=== PATIENT | female | born 1960 | race Caucasian/White ===

== ENCOUNTER → 2017-06-01 | Outpatient (CLI) | payer BC | LOC: FIMAGING 15:11 | PROVIDERS: ATTEND Family Medicine | DX: Z12.31 Encounter for screening mammogram for malignant neoplasm of breast (principal) | CPT/HCPCS: G0202 ==

== ENCOUNTER → 2017-08-27 | Outpatient (CLI) | payer BC ==
[~2017-08-27] MED LIST: GADOBUTROL 10 ML VIAL IVP ONE
== END ==
LOC: FIMAGING 10:39
PROVIDERS: ATTEND Internal Medicine Interventional Cardiology
DX: G93.9 Disorder of brain, unspecified (principal); I47.1 Supraventricular tachycardia; I34.0 Nonrheumatic mitral (valve) insufficiency
CPT/HCPCS: A9585

== ENCOUNTER 2017-10-28 15:26 | Inpatient (IN) | payer BC ==
[2017-10-28] MEDS ORDERED: TEARS/DEXTRAN 70/HYPROMELLOSE 15 ML OPHT.BTL RTEYE PRN (16:39)
[2017-10-28] MEDS ORDERED: oxyCODONE IR 5 MG TAB PO PRN (16:39)
[2017-10-28] MEDS: DEXAMETHASONE 4 MG TAB PO SCH ×2 (17:59→21:03)
--- NOTE | 2017-10-28 18:28 | GHP ---
[f rep st] HISTORY AND PHYSICAL POST ADMISSION PHYSICIAN EVALUATION AND REHABILITATION TREATMENT PLAN DATE OF ADMISSION: 10/28/2017 DATE OF EVALUATION: 10/28/2017. TIME OF EVALUATION: 1635. REFERRING FACILITY: [facility]. REFERRING PHYSICIAN: Dr. Phillips IMPAIRMENT GROUP: 2.1. DATE OF ONSET: 10/22/2017. 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 ETIOLOGIC DIAGNOSIS: Nontraumatic brain dysfunction. DATE OF SURGERY: 10/22/2017. HISTORY OF PRESENT ILLNESS: This patient had progressive numbness of the right side of her face, and had evaluation with a CT scan which showed a brain mass on the right side consistent with a schwannoma. She was referred to the [facility], where she underwent a right translabyrinthine approach craniotomy and resection of a large acoustic neuroma. She had dissection of the right greater auricular nerve and harvest and cable graft with a transected right facial nerve, and she had a right abdominal fat graft. Postoperatively, she had hearing loss on the right, nausea and vertigo. She also had right facial nerve paralysis. She had a procedure in which a gold weight was placed in her right eyelid to facilitate closing of the eye, on 10/27. Postoperative nausea and vomiting resolved, but she continues to have ataxia on the right and balance impairment, though she has been able to ambulate. Lab studies in the hospital: She had a troponin leak with a peak of 0.49 and subsequent improvement. Basic metabolic panel on 10/23, revealed normal renal function and electrolytes. Postoperative brain MRI showed gross total resection of right cerebellopontine and vestibular schwannoma via translabyrinthine approach. She had edema in the right lateral chandni, middle cerebellar, peduncle and right cerebellar hemisphere, and the mass that had occupied the posterior fossa was noted to be decreased. PRECAUTIONS: She is a fall risk and she is an aspiration risk. ACTIVE COMORBIDITIES: She has a tier 2 comorbidity of dysphagia. She otherwise has no active tier 1, tier 2 or tier 3 comorbidities. PAST MEDICAL HISTORY: 1. Mitral valve regurgitation. 2. Cardiac dysrhythmia. PAST SURGICAL HISTORY: 1. Mitral valve repair. 2. Pacemaker placement. PRE-HOSPITAL MEDICATIONS: I do not have a list. ADMISSION MEDICATIONS: 1. Artificial Tears 2 drops right eye q.2 hours p.r.n. 2. Aspirin 81 mg p.o. daily to start 7 days after surgery. 3. Bacitracin ophthalmic to the right eye twice daily. 4. Bacitracin ointment to the right post auricular incision twice daily. 5. Dexamethasone taper. 6. Metoprolol 50 mg p.o. twice daily. 7. Multivitamin 1 p.o. q. Wednesday and . 8. Oxycodone 5 mg p.o. q.4 hours p.r.n. 9. Refresh p.m. ointment to the right eye at bedtime. 10. Valacyclovir 500 mg p.o. twice daily. ALLERGIES: Medication allergies listed to nitrofurantoin. She also has allergies to apple, hazelnut, peach, pear, shellfish and cherries. PSYCHOSOCIAL HISTORY: She is . She lives with her . She has been a homemaker. She is a nonsmoker. There are 16 steps to enter the home. FAMILY HISTORY: Noncontributory. There is no family history of blood clots. REVIEW OF SYSTEMS: She denies pain, cough, dyspnea, palpitations. She had nausea, but it has resolved. There is no constipation or diarrhea. She denies dysuria or urinary frequency. She denies joint swelling or joint pain. She is aware of balance impairment. She was able to ambulate greater than 200 feet with assistance. She has diplopia on right gaze. Otherwise, a 10-point review of systems is negative. PHYSICAL EXAM: VITAL SIGNS: Blood pressure is 122/77, heart rate is 76, respiratory rate is 16, oxygen saturation is 97% on room air, temperature is 37.1 degrees centigrade. GENERAL: This is a well-nourished, well-developed woman sitting up in a chair, dressed in street clothes. Cooperative and in no acute distress. HEENT: Extraocular movements were intact, but she appears to have excess lateral movement of the right eye on right gaze. Pupils are equal, round, and reactive to light. Mucous membranes are moist. Dentition is in good condition. She has a prominent right facial droop. NECK: Supple. HEART : There is a regular rate and rhythm with no murmurs, rubs, or gallops. LUNGS : Clear to auscultation bilaterally. ABDOMEN: Soft, nontender, nondistended with normoactive bowel sounds and no hepatosplenomegaly. EXTREMITIES: There is no cyanosis, clubbing, or edema. NEUROLOGIC: She is alert and oriented x3. She has a prominent left facial droop as well as reduced ability to close her right eye, consistent with a right facial nerve injury. Otherwise, cranial nerves 2-12 are grossly intact. There is no focal weakness. Sensation is intact to light touch. Deep tendon reflexes are 2+ bilaterally at the biceps, patellar, and Achilles tendons. She has loss of smooth movement and some past pointing on [id number] with the right upper extremity. CURRENT LEVEL OF FUNCTION: Per the pre-admission screen. Regarding diet, feeding, and swallowing, she was noted to have mild dysphagia, but was on a regular diet. reports that she was on a dysphagia 2 texture with thin liquids. For grooming, she had contact guard for safety. For bathing she had contact guard with use of a bath bench. She was able to do lower body dressing with minimal assist. For toileting she required grab bars and close contact guard for balance. Bladder and bowel were continent. Bed mobility required contact guard. Transfers required close contact guard due to decreased balance and risk for fall. Dynamic balance required minimal assist. Endurance was fair. She was able to ambulate 220 feet with contact guard using a front- wheeled walker. When she was fatigued, her gait pattern had decreased coordination. It was noted that she had episodes of orthostatic hypotension and dizziness during functional tasks, and she was considered a high fall risk. There are no significant changes on today's exam from the pre-admission screen. IMPRESSION: This is a 57-year-old woman who had resection of a right vestibular schwannoma on 10/22/2017. She has had a right cranial nerve 7 injury during the surgery, which has caused a right facial droop, mild dysphagia and inability to close her right eye. The issue with the right eye has been addressed with implantation of a gold weight. She has impaired balance and ataxia of the right upper extremity and possibly of the right lower extremity. She is otherwise medically stable and appropriate for inpatient rehabilitation where she will benefit from physical therapy and occupational therapy to optimize mobility and activities of daily living, and speech and language pathology regarding swallowing. Other medical issues include wound healing, recent troponin leak, and history of mitral valve repair and pacemaker placement; she does not have pain; she is to continue with dexamethasone taper to reduce intracranial swelling. Her goal is to complete a rehabilitation stay and then return home with her family. For a safe discharge, she will need to achieve independence with eating , grooming, and bed mobility. She will need to have modified independence for transfers and ambulation with the least restrictive device on level and unlevel surfaces. She will need to be able to climb and descend stairs. She will need to demonstrate independent use of compensatory strategies during functional tasks to minimize risk for falls and she will be on the least restrictive diet. She will have therapy with physical therapy, occupational therapy, and speech and language pathology for 60 minutes per day for each discipline on 5-7 days of the week. Her expected duration of stay is 5-7 days. It is anticipated that upon discharge she will continue to benefit from home health services including speech language pathology, occupational therapy, and physical therapy. PLAN: 1. Ataxia and balance abnormalities following labyrinthine approach resection of right vestibular schwannoma. She has come through surgery well, but needs physical and occupational therapy to optimize mobility and activities of daily living and also to address diplopia, for a safe discharge home at the independent to modified independent level. 2. 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 Assessment per speech and language pathology to optimize her swallowing. 3. Impaired closure of the right eye, status post implantation of gold weight. Continue bacitracin ophthalmic ointment as well as eye drops, and observe for any irritation. 4. History of mitral valve replacement and pacemaker placement. She has additional rate control with metoprolol which is to be continued. She shows no signs or symptoms of heart failure, though there was a troponin leak during her surgery. She will be monitored in terms of blood pressure, heart rate, and cardiopulmonary status. 5. Intracranial edema, status post surgery. Continue dexamethasone taper. 6. Infectious prophylaxis against herpes zoster. She has been discharged from the hospital with valacyclovir. She has been prescribed a 30-day supply with 60 tablets, so presumably this should be continued for a full 30 days or until followup with Neurosurgery. 7. DVT prophylaxis. She does not appear to be at markedly elevated risk, and though she requires assistance for balance, her mobility is good. She will have SCDs at night. She will not have pharmacologic anticoagulation. Continue aspirin, which presumably is also for risk for coronary artery. FOLLOWUP: Per hospital discharge information. She is to have a postoperative visit with neurosurgeon, Dr. Phillips, at [facility] in [place], [place], on November 15, and with cuff runner, Dr. Marquis, at [facility] on November 30, 2017. Her primary care provider is Dr. Suki Arce, and she is scheduled for followup with her on October2017. This followup may not be kept if she remains at inpatient rehabilitation on that date, but the likelihood is that she will be discharged before then. /[id number]/MODL MTDD
[2017-10-28] MEDS: BACITRACIN OPHTHALMIC OINTMENT RTEYE SCH (21:03)
[2017-10-28] MEDS: valACYclovir 500 MG TAB PO SCH (21:03)
[2017-10-28] MEDS: METOPROLOL TARTRATE 50 MG TAB PO SCH (21:03)
[2017-10-28] MEDS: PETROLAT,WHT/MIN OIL/SOD CHL 3.5 GM OPHT.OINT RTEYE SCH (21:04)
[2017-10-28] MEDS: BACITRACIN ZINC TP SCH (21:04)
[2017-10-28] MEDS ORDERED: DEXAMETHASONE 4 MG TAB PO SCH (22:00)
[2017-10-29] MEDS: DEXAMETHASONE 4 MG TAB PO SCH ×3 (06:11→21:13)
[2017-10-29] MEDS: METOPROLOL TARTRATE 50 MG TAB PO SCH ×2 (08:54→21:13)
[2017-10-29] MEDS: ASPIRIN EC 81 MG TAB PO SCH (08:54)
[2017-10-29] MEDS: valACYclovir 500 MG TAB PO SCH ×2 (08:55→21:13)
--- NOTE | 2017-10-29 09:20 | PDOREHIP ---
Admission [facility] - Admission - 3 Day Assessment Period Admission Date/Day 1: 10/28/17 Day 2: 10/29/17 Day 3: 10/30/17 - Active Diagnoses Comorbidities and Co-existing Conditions at Admission: 32764. None of the Above - Skin Conditions Unhealed Pressure Ulcer (1 or more/Stage 1 or >)-Admission: 0. No
--- NOTE | 2017-10-29 09:35 | SOAPPROG ---
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 * Physical and occupational therapy to optimize mobility and activities of daily living and also to address diplopia, for a safe discharge home at the independent to modified independent level. * Currently she is a significant fall risk. 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 Continue speech and language pathology to optimize her swallowing. She reports the surgeon told her to expect 6 - 12 months for the nerve graft to mature and function to return to left CN7. * Impaired closure of the right eye, status post implantation of gold weight. Continue bacitracin ophthalmic ointment as well as eye drops, and observe for any irritation. * History of mitral valve replacement and pacemaker placement. She has additional rate control with metoprolol which is to be continued. She shows no signs or symptoms of heart failure, though there was a troponin leak during her surgery. Continue aspirin. She will be monitored in terms of blood pressure, heart rate, and cardiopulmonary status. * Intracranial edema, status post surgery. Continue dexamethasone taper. * Infectious prophylaxis against herpes zoster. She has been discharged from the hospital with valacyclovir. She has been prescribed a 30-day supply with 60 tablets, so presumably this should be continued for a full 30 days or until followup with Neurosurgery. * DVT prophylaxis. She does not appear to be at markedly elevated risk, and though she requires assistance for balance, her mobility is good. She will have SCDs at night. She will not have pharmacologic anticoagulation. Continue aspirin, which presumably is also for risk for coronary artery. FOLLOWUP: Per hospital discharge information. She is to have a postoperative visit with neurosurgeon, Dr. Phillips, at [facility] in [place], [place], on November 15, and with health companion, Dr. Marquis, at [facility] on November 30, 2017. Her primary care provider is Dr. Suki Arce, and she is scheduled for followup with her on October2017. This followup may not be kept if she remains at inpatient rehabilitation on that date, but the likelihood is that she will be discharged before then. 10/29/17 11:00 Subjective: No complaints. Slept most of the night but says she woke at approximately 4:00 a.m. She is not in pain. She denies cough or dyspnea, fevers or chills. Objective: Vital Signs Temp Pulse Resp BP Pulse Ox 36.5 C 79 16 114/73 95 10/29/17 06:23 10/29/17 08:54 10/29/17 06:23 10/29/17 08:54 10/29/17 06:23 10/28/17 10/29/17 10/30/17 05:59 05:59 05:59 Intake Total 450 Balance 450 Physical Exam - Physical Exam General Appearance: WD/WN, alert, no apparent distress Respiratory: normal breath sounds, No crackles, No rhonchi, No wheezing Cardiac/Chest: regular rate, rhythm, No edema, No JVD Skin: normal color, warm/dry Neuro/Psych: alert, normal mood/affect, oriented x 3, abnormal curtain cutter II-XII ( Marked right facial droop) ICD10 Worksheet Patient Problems: Problems Problem Status Onset Balance problem due to labyrinthine dysfunction of right ear Acute S/P craniotomy Acute - ICD10 Problem Qualifiers (1) 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
[2017-10-29] MEDS: BACITRACIN ZINC TP SCH ×2 (11:35→21:12)
[2017-10-29] MEDS: BACITRACIN OPHTHALMIC OINTMENT RTEYE SCH ×2 (11:38→21:12)
[2017-10-29] MEDS ORDERED: PNEUMOCOCCAL 0.5ML VACCINE VIAL (PNEUMOVAX 23) IM ONE ×2 (16:02→18:30)
[2017-10-29] MEDS: PETROLAT,WHT/MIN OIL/SOD CHL 3.5 GM OPHT.OINT RTEYE SCH (21:00)
[2017-10-30] MEDS: DEXAMETHASONE 4 MG TAB PO SCH ×3 (06:06→21:26)
[2017-10-30] MEDS: METOPROLOL TARTRATE 50 MG TAB PO SCH ×2 (08:52→21:08)
[2017-10-30] MEDS: valACYclovir 500 MG TAB PO SCH ×2 (08:52→21:07)
[2017-10-30] MEDS: ASPIRIN EC 81 MG TAB PO SCH (08:52)
[2017-10-30] MEDS: BACITRACIN ZINC TP SCH ×2 (09:59→21:10)
[2017-10-30] MEDS: BACITRACIN OPHTHALMIC OINTMENT RTEYE SCH ×2 (10:00→21:09)
[2017-10-30] MEDS ORDERED: POLYETHYLENE GLYCOL 3350 17 GM PKT PO PRN (15:12)
--- NOTE | 2017-10-30 15:17 | SOAPPROG ---
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 * Physical and occupational therapy to optimize mobility and activities of daily living and also to address diplopia, for a safe discharge home at the independent to modified independent level. * Currently she is a significant fall risk. 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 Continue speech and language pathology to optimize her swallowing. She reports the surgeon told her to expect 6 - 12 months for the nerve graft to mature and function to return to left CN7. * Impaired closure of the right eye, status post implantation of gold weight. Continue bacitracin ophthalmic ointment as well as eye drops, and observe for any irritation. * History of mitral valve replacement and pacemaker placement. She has additional rate control with metoprolol which is to be continued. She shows no signs or symptoms of heart failure, though there was a troponin leak during her surgery. Continue aspirin. She will be monitored in terms of blood pressure, heart rate, and cardiopulmonary status. * Intracranial edema, status post surgery. Continue dexamethasone taper. * Infectious prophylaxis against herpes zoster. She has been discharged from the hospital with valacyclovir. She has been prescribed a 30-day supply with 60 tablets, so presumably this should be continued for a full 30 days or until followup with Neurosurgery. * DVT prophylaxis. She does not appear to be at markedly elevated risk, and though she requires assistance for balance, her mobility is good. She will have SCDs at night. She will not have pharmacologic anticoagulation. Continue aspirin, which presumably is also for risk for coronary artery. FOLLOWUP: Per hospital discharge information. She is to have a postoperative visit with neurosurgeon, Dr. Phillips, at [facility] in [place], [place], on November 15, and with woods rider, Dr. Marquis, at [facility] on November 30, 2017. Her primary care provider is Dr. Suki Arce, and she is scheduled for followup with her on , October. This followup may not be kept if she remains at inpatient rehabilitation on that date, but the likelihood is that she will be discharged before then. Plan: Con Dr Carlson's rehab treatment plan 10/30/17 15:14 Subjective: No new C/O's Mobility, balance improving No F/C/CP/SOB/N/V/D/C Objective: Vital Signs Temp Pulse Resp BP Pulse Ox 36.5 C 90 16 107/69 97 10/30/17 07:05 10/30/17 09:00 10/30/17 07:05 10/30/17 09:00 10/30/17 07:05 10/29/17 10/30/17 10/31/17 05:59 05:59 05:59 Intake Total 450 596 600 Balance 450 596 600 Physical Exam - Physical Exam General Appearance: alert EENT: EOM palsy Neck: supple Respiratory: lungs clear Cardiac/Chest: regular rate, rhythm Skin: normal color, warm/dry Extremities: No pedal edema, No calf tenderness Neuro/Psych: alert, normal mood/affect, oriented x 3, abnormal marketing representative II-XII, abnormal gait, EOM palsy, facial droop, motor weakness, sensory deficit, other ( No acute changes) ICD10 Worksheet Patient Problems: Problems Problem Status Onset Balance problem due to labyrinthine dysfunction of right ear Acute S/P craniotomy Acute
[2017-10-30] MEDS: PETROLAT,WHT/MIN OIL/SOD CHL 3.5 GM OPHT.OINT RTEYE SCH (20:21)
[2017-10-30] MEDS: ACETAMINOPHEN 325 MG TAB PO PRN (21:08)
[2017-10-30] MEDS: DOCUSATE SODIUM 100 MG CAP PO PRN (21:08)
[2017-10-31] MEDS: valACYclovir 500 MG TAB PO SCH ×2 (08:06→20:52)
[2017-10-31] MEDS: METOPROLOL TARTRATE 50 MG TAB PO SCH ×2 (08:06→20:52)
[2017-10-31] MEDS: ASPIRIN EC 81 MG TAB PO SCH (08:06)
[2017-10-31] MEDS: DEXAMETHASONE 4 MG TAB PO SCH ×2 (08:07→20:52)
[2017-10-31] MEDS: BACITRACIN ZINC TP SCH ×2 (08:13→21:04)
[2017-10-31] MEDS: BACITRACIN OPHTHALMIC OINTMENT RTEYE SCH ×2 (08:15→21:04)
--- NOTE | 2017-10-31 12:37 | SOAPPROG ---
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 * Physical and occupational therapy to optimize mobility and activities of daily living and also to address diplopia, for a safe discharge home at the independent to modified independent level. * Currently she is a significant fall risk. 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 Continue speech and language pathology to optimize her swallowing. She reports the surgeon told her to expect 6 - 12 months for the nerve graft to mature and function to return to left CN7. * Impaired closure of the right eye, status post implantation of gold weight. Continue bacitracin ophthalmic ointment as well as eye drops, and observe for any irritation. * History of mitral valve replacement and pacemaker placement. She has additional rate control with metoprolol which is to be continued. She shows no signs or symptoms of heart failure, though there was a troponin leak during her surgery. Continue aspirin. She will be monitored in terms of blood pressure, heart rate, and cardiopulmonary status. * Intracranial edema, status post surgery. Continue dexamethasone taper. * Infectious prophylaxis against herpes zoster. She has been discharged from the hospital with valacyclovir. She has been prescribed a 30-day supply with 60 tablets, so presumably this should be continued for a full 30 days or until followup with Neurosurgery. * DVT prophylaxis. She does not appear to be at markedly elevated risk, and though she requires assistance for balance, her mobility is good. She will have SCDs at night. She will not have pharmacologic anticoagulation. Continue aspirin, which presumably is also for risk for coronary artery. FOLLOWUP: Per hospital discharge information. She is to have a postoperative visit with neurosurgeon, Dr. Phillips, at [facility] in [place], [place], on November 15, and with sales agent business services, Dr. Marquis, at [facility] on November 30, 2017. Her primary care provider is Dr. Suki Arce, and she is scheduled for followup with her on , October. This followup may not be kept if she remains at inpatient rehabilitation on that date, but the likelihood is that she will be discharged before then. Plan: No new problems or C/O's, Cont Dr Carlson's rehab treatment plan 10/31/17 12:35 Subjective: No pain/F/C/CP/SOB/N/V/D/C Objective: Vital Signs Temp Pulse Resp BP Pulse Ox 36.4 C 79 16 104/70 96 10/31/17 08:00 10/31/17 08:00 10/31/17 08:00 10/31/17 08:00 10/31/17 08:00 10/30/17 10/31/17 11/01/17 05:59 05:59 05:59 Intake Total 596 1160 Output Total 200 400 Balance 596 960 -400 Physical Exam - Physical Exam General Appearance: alert, no apparent distress EENT: EOM palsy Respiratory: lungs clear Cardiac/Chest: regular rate, rhythm Skin: normal color, warm/dry Extremities: No pedal edema, No calf tenderness Neuro/Psych: alert, normal mood/affect, oriented x 3, EOM palsy, facial droop, motor weakness, other (no acute changes) ICD10 Worksheet Patient Problems: Problems Problem Status Onset Balance problem due to labyrinthine dysfunction of right ear Acute S/P craniotomy Acute
[2017-10-31] MEDS: PETROLAT,WHT/MIN OIL/SOD CHL 3.5 GM OPHT.OINT RTEYE SCH (21:05)
[2017-11-01] MEDS: ASPIRIN EC 81 MG TAB PO SCH (08:48)
[2017-11-01] MEDS: DEXAMETHASONE 4 MG TAB PO SCH ×2 (08:49→21:01)
[2017-11-01] MEDS: valACYclovir 500 MG TAB PO SCH ×2 (08:50→21:01)
[2017-11-01] MEDS: METOPROLOL TARTRATE 50 MG TAB PO SCH ×2 (08:51→21:01)
[2017-11-01] MEDS: DOCUSATE SODIUM 100 MG CAP PO PRN (08:51)
[2017-11-01] MEDS: MULTIVITAMINS 1 EACH TAB PO SCH (08:51)
[2017-11-01] MEDS: BACITRACIN OPHTHALMIC OINTMENT RTEYE SCH ×2 (11:05→21:02)
[2017-11-01] MEDS: BACITRACIN ZINC TP SCH ×2 (11:06→21:02)
--- NOTE | 2017-11-01 15:16 | SOAPPROG ---
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 * Initial functional independence measure 85 on 11/01/2017. Minimal assist for transfers using a front wheeled walker. Ambulated 100 ft contact guard assist to minimal assist. Dressing requires setup or supervision, bathing requires minimal assistance. * Continue physical and occupational therapy to optimize mobility and activities of daily living and also to address diplopia, for a safe discharge home at the independent to modified independent level. 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 * Dysphagia 2 diet texture with thin liquids per straw. She is unable to maintain labial seal sufficient to drink fluids other than with a straw. She has pocketing on the right but she is independent for clearing the pocketing. * Continue speech and language pathology to optimize her swallowing. She reports the surgeon told her to expect 6 - 12 months for the nerve graft to mature and function to return to left CN7. * Impaired closure of the right eye, status post implantation of gold weight. Continue bacitracin ophthalmic ointment as well as eye drops, and observe for any irritation. * History of mitral valve replacement and pacemaker placement. She has additional rate control with metoprolol which is to be continued. She shows no signs or symptoms of heart failure, though there was a troponin leak during her surgery. Continue to monitor blood pressure, heart rate, and cardiopulmonary status. * Intracranial edema, status post surgery. Continue dexamethasone taper. * Infectious prophylaxis against herpes zoster. She has been discharged from the hospital with valacyclovir. She has been prescribed a 30-day supply with 60 tablets, so presumably this should be continued for a full 30 days or until followup with Neurosurgery. * DVT prophylaxis. She does not appear to be at markedly elevated risk, and though she requires assistance for balance, her mobility is good. She will have SCDs at night. She will not have pharmacologic anticoagulation. Continue aspirin, which presumably is also for risk for coronary artery. FOLLOWUP: Per hospital discharge information. She is to have a postoperative visit with neurosurgeon, Dr. Phillips, at [facility] in [place], [place], on November 15, and with director of placement, Dr. Marquis, at [facility] on November 30, 2017. Her primary care provider is Dr. Suki Arce, and she is scheduled for followup with her on October2017. This followup may not be kept if she remains at inpatient rehabilitation on that date, but the likelihood is that she will be discharged before then. Follow up with fitting room maintenance mechanic Dr. Matthews after discharge. Attended staffing, 15 min. Discussed with case management, nursing, dietitian, pharmacy, PT, OT, MILKING MACHINE TECHNICIAN. Tentative discharge date set for 11/10/2017. Expect discharge home with family. 11/01/17 15:09 Subjective: No complaints. Sleeping better with the last 2 nights. Not in pain. Thinks her balance is improving. Still with double vision and OT taping over her glasses. Reports constipation. Objective: Vital Signs Temp Pulse Resp BP Pulse Ox 36.6 C 67 16 108/66 95 11/01/17 06:34 11/01/17 06:34 11/01/17 06:34 11/01/17 06:34 11/01/17 06:34 10/31/17 11/01/17 11/02/17 05:59 05:59 05:59 Intake Total 1160 400 580 Output Total 200 625 1 Balance 960 -225 579 - Time Spent With Patient Time Spent With Patient: Greater than 35 min floor time today, including more than 50% of time in coordination of care during staffing meeting, and counseling patient. Physical Exam - Physical Exam General Appearance: WD/WN, alert, no apparent distress Respiratory: normal breath sounds, No crackles, No rhonchi, No wheezing Cardiac/Chest: regular rate, rhythm, No edema, No JVD, No diastolic murmur, No systolic murmur Skin: normal color, warm/dry Neuro/Psych: alert, normal mood/affect, oriented x 3, abnormal air force senior officer II-XII ( Right facial droop) ICD10 Worksheet Patient Problems: Problems Problem Status Onset Balance problem due to labyrinthine dysfunction of right ear Acute S/P craniotomy Acute - ICD10 Problem Qualifiers (1) 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
[2017-11-01] MEDS: PETROLAT,WHT/MIN OIL/SOD CHL 3.5 GM OPHT.OINT RTEYE SCH (21:02)
[2017-11-02] MEDS: DEXAMETHASONE 4 MG TAB PO SCH ×2 (08:06→20:47)
[2017-11-02] MEDS: ASPIRIN EC 81 MG TAB PO SCH (08:06)
[2017-11-02] MEDS: POLYETHYLENE GLYCOL 3350 17 GM PKT PO SCH (08:06)
[2017-11-02] MEDS: METOPROLOL TARTRATE 50 MG TAB PO SCH ×2 (08:06→20:50)
[2017-11-02] MEDS: valACYclovir 500 MG TAB PO SCH (08:07)
[2017-11-02] MEDS: MULTIVITAMINS 1 EACH TAB PO SCH (08:07)
[2017-11-02] MEDS: BACITRACIN OPHTHALMIC OINTMENT RTEYE SCH ×2 (10:19→22:14)
[2017-11-02] MEDS: BACITRACIN ZINC TP SCH (10:20)
--- NOTE | 2017-11-02 15:28 | SOAPPROG ---
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 * Initial functional independence measure 85 on 11/01/2017. Minimal assist for transfers using a front wheeled walker. Ambulated 100 ft contact guard assist to minimal assist. Dressing requires setup or supervision, bathing requires minimal assistance. * Continue physical and occupational therapy to optimize mobility and activities of daily living and also to address diplopia, for a safe discharge home at the independent to modified independent level. 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 * Dysphagia 2 diet texture with thin liquids per straw. She is unable to maintain labial seal sufficient to drink fluids other than with a straw. She has pocketing on the right but she is independent for clearing the pocketing. * Continue speech and language pathology to optimize her swallowing. She reports the surgeon told her to expect 6 - 12 months for the nerve graft to mature and function to return to left CN7. * Impaired closure of the right eye, status post implantation of gold weight. Continue bacitracin ophthalmic ointment as well as eye drops, and observe for any irritation. * Wound care. Continue bacitracin to postauricular wound. Left message 2017 with [facility] neurosurgery Department regarding duration of bacitracin and whether sutures can be removed while she is on the inpatient rehabilitation unit. * History of mitral valve replacement and pacemaker placement. She has additional rate control with metoprolol which is to be continued. She shows no signs or symptoms of heart failure, though there was a troponin leak during her surgery. Continue to monitor blood pressure, heart rate, and cardiopulmonary status. * Intracranial edema, status post surgery. Continue dexamethasone taper. * Infectious prophylaxis against herpes zoster. She has been discharged from the hospital with valacyclovir. She has been prescribed a 30-day supply with 60 tablets, so presumably this should be continued for a full 30 days or until followup with Neurosurgery. * DVT prophylaxis. She does not appear to be at markedly elevated risk, and though she requires assistance for balance, her mobility is good. She will have SCDs at night. She will not have pharmacologic anticoagulation. Continue aspirin, which presumably is also for risk for coronary artery. FOLLOWUP: Per hospital discharge information. She is to have a postoperative visit with neurosurgeon, Dr. Phillips, at [facility] in [place], [place], on November 15, and with right of way appraiser, Dr. Marquis, at [facility] on November 30, 2017. Her primary care provider is Dr. Suki Arce, and she is scheduled for followup with her on October2017. This followup may not be kept if she remains at inpatient rehabilitation on that date, but the likelihood is that she will be discharged before then. Follow up with windows and doors installer Dr. Matthews after discharge. Tentative discharge date set for 11/10/2017. Expect discharge home with family. 11/02/17 15:25 Subjective: No complaints today. Working with therapy. Sleeping well. Not in pain. Objective: Vital Signs Temp Pulse Resp BP Pulse Ox 36.6 C 92 16 104/62 97 11/02/17 06:50 11/02/17 08:06 11/02/17 06:50 11/02/17 06:50 11/02/17 06:50 11/01/17 11/02/17 11/03/17 05:59 05:59 05:59 Intake Total 400 1505 Output Total 625 1 500 Balance -225 1504 -500 Physical Exam - Physical Exam General Appearance: WD/WN, alert, no apparent distress Respiratory: No respiratory distress, No accessory muscle use Skin: normal color, warm/dry, other (Right post auricular incision with sutures present, no dehiscence, no drainage, no erythema or swelling) Neuro/Psych: alert, normal mood/affect, oriented x 3, abnormal industrial refrigeration mechanic II-XII ( Right facial droop) ICD10 Worksheet Patient Problems: Problems Problem Status Onset Balance problem due to labyrinthine dysfunction of right ear Acute S/P craniotomy Acute - ICD10 Problem Qualifiers (1) 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
[2017-11-02] MEDS: PETROLAT,WHT/MIN OIL/SOD CHL 3.5 GM OPHT.OINT RTEYE SCH (22:14)
[2017-11-03] MEDS: POLYETHYLENE GLYCOL 3350 17 GM PKT PO SCH (08:06)
[2017-11-03] MEDS: ASPIRIN EC 81 MG TAB PO SCH (08:09)
[2017-11-03] MEDS: METOPROLOL TARTRATE 50 MG TAB PO SCH ×2 (08:09→20:20)
[2017-11-03] MEDS: DEXAMETHASONE 2 MG TAB PO SCH ×2 (08:09→20:20)
[2017-11-03] MEDS: MULTIVITAMINS 1 EACH TAB PO SCH (08:09)
[2017-11-03] MEDS: BACITRACIN OPHTHALMIC OINTMENT RTEYE SCH ×2 (09:41→20:23)
--- NOTE | 2017-11-03 12:16 | SOAPPROG ---
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 * Initial functional independence measure 85 on 11/01/2017. Minimal assist for transfers using a front wheeled walker. Ambulated 100 ft contact guard assist to minimal assist. Dressing requires setup or supervision, bathing requires minimal assistance. * Continue physical and occupational therapy to optimize mobility and activities of daily living and also to address diplopia, for a safe discharge home at the independent to modified independent level. 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 * Dysphagia 2 diet texture advanced to regular texture on 11/03/2017; continue with thin liquids per straw. She is unable to maintain labial seal sufficient to drink fluids other than with a straw. She has pocketing on the right but she is independent for clearing the pocketing. * Continue speech and language pathology to optimize her swallowing. She reports the surgeon told her to expect 6 - 12 months for the nerve graft to mature and function to return to left CN7. * Impaired closure of the right eye, status post implantation of gold weight. Continue bacitracin ophthalmic ointment as well as eye drops, and observe for any irritation. * Wound care. Discontinued sutures from post auricular wound yesterday, 2017. Healing well. No need for continued bacitracin. * History of mitral valve replacement and pacemaker placement. She has additional rate control with metoprolol which is to be continued. She shows no signs or symptoms of heart failure, though there was a troponin leak during her surgery. Continue to monitor blood pressure, heart rate, and cardiopulmonary status. * Intracranial edema, status post surgery. Continue dexamethasone taper. * Infectious prophylaxis against herpes zoster. Discussed with nurse surgery yesterday 11/02/2017. Valacyclovir was intended to be a total of a 7 day course. It was discontinued yesterday, 11/02/2017. * DVT prophylaxis. She does not appear to be at markedly elevated risk, and though she requires assistance for balance, her mobility is good. She will have SCDs at night. She will not have pharmacologic anticoagulation. Continue aspirin, which presumably is also for risk for coronary artery. FOLLOWUP: Per hospital discharge information. She is to have a postoperative visit with neurosurgeon, Dr. Phillips, at [facility] in [place], [place], on November 15, and with host, Dr. Marquis, at [facility] on November 30, 2017. Her primary care provider is Dr. Suki Arce. Follow up with provisioning specialist Dr. Matthews after discharge. Tentative discharge date set for 11/10/2017. Expect discharge home with family. 11/03/17 12:13 Subjective: No complaints. Slept well. Not in pain. No right eye irritation. Objective: Vital Signs Temp Pulse Resp BP Pulse Ox 36.7 C 73 14 101/63 96 11/03/17 06:43 11/03/17 06:43 11/03/17 06:43 11/03/17 06:43 11/03/17 06:43 11/02/17 11/03/17 11/04/17 05:59 05:59 05:59 Intake Total 1505 420 500 Output Total 1 900 300 Balance 1504 -480 200 Physical Exam - Physical Exam General Appearance: WD/WN, alert, no apparent distress Respiratory: No respiratory distress, No accessory muscle use Skin: normal color, warm/dry, other (Left Hand have been removed from right post auricular incision. Incision is clean dry and intact) Neuro/Psych: alert, normal mood/affect, oriented x 3, abnormal processing specialist II-XII ( Right facial droop), abnormal gait (Lists to right. Needs contact guard or more per PT to avoid falling while walking.) ICD10 Worksheet Patient Problems: Problems Problem Status Onset Balance problem due to labyrinthine dysfunction of right ear Acute S/P craniotomy Acute - ICD10 Problem Qualifiers (1) 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
[2017-11-03] MEDS: PETROLAT,WHT/MIN OIL/SOD CHL 3.5 GM OPHT.OINT RTEYE SCH (20:23)
[2017-11-03] MEDS: ACETAMINOPHEN 325 MG TAB PO PRN (20:30)
[2017-11-04] MEDS: POLYETHYLENE GLYCOL 3350 17 GM PKT PO SCH (08:39)
[2017-11-04] MEDS: ASPIRIN EC 81 MG TAB PO SCH (08:40)
[2017-11-04] MEDS: DEXAMETHASONE 2 MG TAB PO SCH ×2 (08:40→20:54)
[2017-11-04] MEDS: METOPROLOL TARTRATE 50 MG TAB PO SCH ×2 (08:42→20:55)
[2017-11-04] MEDS: BACITRACIN OPHTHALMIC OINTMENT RTEYE SCH ×2 (10:24→20:54)
--- NOTE | 2017-11-04 10:56 | SOAPPROG ---
SOAP Progress Note Assessment/Plan: 51-year-old woman status post craniotomy for schwannoma resection Today's update: Patient doing well in therapies, no new concerns. Continue rehab plan below. A total of 20 min was spent on the floor in the care of the patient, the majority of which was spent in counseling and coordination of care regarding patient follow-up. Her chest discomfort is most consistent with reflux/GERD, relieved with food. This occurs to her regularly and is predictably relieved with food. Continue to monitor, will add GI medication for comfort. 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 * Initial functional independence measure 85 on 11/01/2017. Minimal assist for transfers using a front wheeled walker. Ambulated 100 ft contact guard assist to minimal assist. Dressing requires setup or supervision, bathing requires minimal assistance. * Continue physical and occupational therapy to optimize mobility and activities of daily living and also to address diplopia, for a safe discharge home at the independent to modified independent level. 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 * Dysphagia 2 diet texture advanced to regular texture on 11/03/2017; continue with thin liquids per straw. She is unable to maintain labial seal sufficient to drink fluids other than with a straw. She has pocketing on the right but she is independent for clearing the pocketing. * Continue speech and language pathology to optimize her swallowing. She reports the surgeon told her to expect 6 - 12 months for the nerve graft to mature and function to return to left CN7. * Impaired closure of the right eye, status post implantation of gold weight. Continue bacitracin ophthalmic ointment as well as eye drops, and observe for any irritation. * Wound care. Discontinued sutures from post auricular wound, 11/02/2017. Healing well. No need for continued bacitracin. * History of mitral valve replacement and pacemaker placement. She has additional rate control with metoprolol which is to be continued. She shows no signs or symptoms of heart failure, though there was a troponin leak during her surgery. Continue to monitor blood pressure, heart rate, and cardiopulmonary status. * Intracranial edema, status post surgery. Continue dexamethasone taper. * Infectious prophylaxis against herpes zoster. Valacyclovir was intended to be a total of a 7 day course. It was discontinued 11/02/2017. * DVT prophylaxis. She does not appear to be at markedly elevated risk, and though she requires assistance for balance, her mobility is good. She will have SCDs at night. She will not have pharmacologic anticoagulation. Continue aspirin, which presumably is also for risk for coronary artery. FOLLOWUP: Per hospital discharge information. She is to have a postoperative visit with neurosurgeon, Dr. Phillips, at [facility] in [place], [place], on November 15, and with photolithographer, Dr. Marquis, at [facility] on November 30, 2017. Her primary care provider is Dr. Suki Arce. Follow up with shovel mechanic Dr. Matthews after discharge. Tentative discharge date set for 11/10/2017. Expect discharge home with family. 11/04/17 10:52 11/04/17 10:56 Subjective: Chief complaint: Neurological improvement No acute events overnight. Patient endorses things have been going well overall. She had some indigestion this morning that is similar to ingestion she has had in the past relieved with breakfast. No new shortness of breath or chest pain otherwise, no new numbness, tingling, or weakness. She says that her function varies day-to-day and was very good yesterday, slightly less this morning. She has no acute concerns. Endorses ongoing vision impairments on the right. Objective: Vital Signs Temp Pulse Resp BP Pulse Ox 36.5 C 71 14 98/64 L 96 11/04/17 07:53 11/04/17 07:53 11/04/17 07:53 11/04/17 07:53 11/04/17 07:53 11/03/17 11/04/17 11/05/17 05:59 05:59 05:59 Intake Total 420 1218 436 Output Total 900 500 900 Balance -480 718 464 Physical Exam - Physical Exam General Appearance: WD/WN, alert, no apparent distress EENT: other (Patch covering right eye, dysconjugate gaze), No scleral icterus (R ), No scleral icterus (L) Respiratory: No respiratory distress, No accessory muscle use Cardiac/Chest: normal peripheral pulses, regular rate, rhythm, No edema Skin: normal color, warm/dry, No cyanosis, No diaphoresis Extremities: non-tender, No pedal edema, No calf tenderness, No swelling Neuro/Psych: alert, normal mood/affect, other (Right-sided finger to nose is dysmetric, normal on the left. She has decreased speed of rapid alternating movements on the right compared to the left. Right-sided facial droop) ICD10 Worksheet Patient Problems: Problems Problem Status Onset Balance problem due to labyrinthine dysfunction of right ear Acute S/P craniotomy Acute
[2017-11-04] MEDS ORDERED: MAG HYDROX/AL HYDROX/SIMETH 30 ML UDCUP PO PRN (14:25)
[2017-11-04] MEDS: DOCUSATE SODIUM 100 MG CAP PO PRN (18:59)
[2017-11-04] MEDS: PETROLAT,WHT/MIN OIL/SOD CHL 3.5 GM OPHT.OINT RTEYE SCH (20:54)
[2017-11-05] MEDS: METOPROLOL TARTRATE 50 MG TAB PO SCH ×2 (09:29→20:09)
[2017-11-05] MEDS: ASPIRIN EC 81 MG TAB PO SCH (09:29)
[2017-11-05] MEDS: POLYETHYLENE GLYCOL 3350 17 GM PKT PO SCH (09:29)
[2017-11-05] MEDS: DEXAMETHASONE 2 MG TAB PO SCH ×2 (09:29→20:10)
[2017-11-05] MEDS: BACITRACIN OPHTHALMIC OINTMENT RTEYE SCH ×2 (09:40→20:15)
--- NOTE | 2017-11-05 13:46 | SOAPPROG ---
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 * Initial functional independence measure 85 on 11/01/2017. Minimal assist for transfers using a front wheeled walker. Ambulated 100 ft contact guard assist to minimal assist. Dressing requires setup or supervision, bathing requires minimal assistance. * Continue physical and occupational therapy to optimize mobility and activities of daily living and also to address diplopia, for a safe discharge home at the independent to modified independent level. 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 * Dysphagia 2 diet texture advanced to regular texture on 11/03/2017; continue with thin liquids per straw. She is unable to maintain labial seal sufficient to drink fluids other than with a straw. She has pocketing on the right but she is independent for clearing the pocketing. * Continue speech and language pathology to optimize her swallowing. She reports the surgeon told her to expect 6 - 12 months for the nerve graft to mature and function to return to left CN7. * Hypoxia and tachycardia, resolved. * Slightly elevated D-dimer. CBC with mild leukocytosis, CTA chest w/out pulmonary embolus of other abnormality. Hypoxia with stair-climbing and tachycardia likely related to deconditioning. * Impaired closure of the right eye, status post implantation of gold weight. Continue bacitracin ophthalmic ointment as well as eye drops, and observe for any irritation. * Wound care. Discontinued sutures from post-auricular wound 11/02/2017. Healing well. No need for continued bacitracin. * History of mitral valve replacement and pacemaker placement. She has additional rate control with metoprolol which is to be continued. She shows no signs or symptoms of heart failure, though there was a troponin leak during her surgery. Continue to monitor blood pressure, heart rate, and cardiopulmonary status. * Intracranial edema, status post surgery. Continue dexamethasone taper. * Infectious prophylaxis against herpes zoster. Discussed with Neurosurgery yesterday 11/02/2017. Valacyclovir was intended to be a total of a 7 day course. It was discontinued yesterday, 11/02/2017. * DVT prophylaxis. She does not appear to be at markedly elevated risk, and though she requires assistance for balance, her mobility is good. She will have SCDs at night. She will not have pharmacologic anticoagulation. Continue aspirin, which presumably is also for risk for coronary artery. FOLLOWUP: Per hospital discharge information. She is to have a postoperative visit with neurosurgeon, Dr. Phillips, at [facility] in [place], [place], on November 15, and with signals officer, Dr. Marquis, at [facility] on November 30, 2017. Her primary care provider is Dr. Suki Arce. Follow up with rn delivery Dr. Matthews after discharge. Tentative discharge date set for 11/10/2017. Expect discharge home with family. 11/05/17 20:23 Subjective: Had episode of shortness of breath an elevated heart rate this morning while climbing stairs with therapy. Subsequently has ambulated in the owen without symptoms. Noted some indigestion yesterday; denies chest pain or palpitations. No cough or dyspnea otherwise. No fevers or chills. Objective: Vital Signs Temp Pulse Resp BP Pulse Ox 36.7 C 86 15 100/71 96 11/05/17 08:00 11/05/17 09:29 11/05/17 08:00 11/05/17 09:29 11/05/17 08:00 11/04/17 11/05/17 11/06/17 05:59 05:59 05:59 Intake Total 1218 1176 180 Output Total 500 900 500 Balance 718 276 -320 Physical Exam - Physical Exam General Appearance: WD/WN, alert, no apparent distress Respiratory: normal breath sounds, No crackles, No rhonchi, No wheezing Cardiac/Chest: regular rate, rhythm, No edema, No diastolic murmur, No systolic murmur Skin: normal color, warm/dry Extremities: No calf tenderness Neuro/Psych: alert, normal mood/affect, oriented x 3, abnormal alarm mechanism adjuster II-XII ( Right facial droop), abnormal gait ICD10 Worksheet Patient Problems: Problems Problem Status Onset Balance problem due to labyrinthine dysfunction of right ear Acute S/P craniotomy Acute - ICD10 Problem Qualifiers (1) 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
[2017-11-05 15:14] LABS: PLATELET COUNT 279 10^3/uL (150-400)
[2017-11-05] MEDS ORDERED: IOPAMIDOL (ISOVUE 370) 100 ML BTL IV ONE (18:55)
[2017-11-05] MEDS: PETROLAT,WHT/MIN OIL/SOD CHL 3.5 GM OPHT.OINT RTEYE SCH (20:28)
[2017-11-06] MEDS: ASPIRIN EC 81 MG TAB PO SCH (09:31)
[2017-11-06] MEDS: METOPROLOL TARTRATE 50 MG TAB PO SCH ×2 (09:31→20:41)
[2017-11-06] MEDS: POLYETHYLENE GLYCOL 3350 17 GM PKT PO SCH (09:32)
[2017-11-06] MEDS: MULTIVITAMINS 1 EACH TAB PO SCH (09:32)
[2017-11-06] MEDS: BACITRACIN OPHTHALMIC OINTMENT RTEYE SCH ×2 (10:40→20:42)
[2017-11-06] MEDS: PETROLAT,WHT/MIN OIL/SOD CHL 3.5 GM OPHT.OINT RTEYE SCH (11:21)
[2017-11-06] MEDS ORDERED: METOPROLOL TARTRATE 25 MG TAB PO ONE (11:21)
--- NOTE | 2017-11-06 12:52 | HOSPPROG ---
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 - cont CABLE TECHNICIAN * Tachycardia. Acutely reoccurred this AM w/ PT (HR 110s) w/ symptomatic palpitations, new problem to this provider, further w/u indicated. D/w patient, she has hx of asymptomatic Atach and NSVT, for which she currently take metop tart 50 bid, and I suspect that she is either experiencing reoccurrence of this w/ activity vs. new atrial arrhythmia (Afib or Flutter), but the process has been self-limited thus far, precluding EKG - get interrogation of PPM by [employer], and this should elucidate the rhythm - increase metop tart to 75mg once etiology is clearer, to prevent reoccurrence during therapy, BP permitting (she has a PPM so her paced rate may kick in) - cont ASA as prescribed by Dr. Matthews - will d/w Cards production designer at [place] today/tomorrow, once interrogation report available - CTA w/o PE * Impaired closure of the right eye, status post implantation of gold weight. Continue bacitracin ophthalmic ointment as well as eye drops, and observe for any irritation. * Wound care. Discontinued sutures from post-auricular wound 11/02/2017. Healing well. No need for continued bacitracin. * History of mitral valve repair (no prosthesis) and pacemaker placement (for complete heart block). She has additional rate control with metoprolol (ATach) which is to be continued. She shows no signs or symptoms of heart failure, though there was a troponin leak during her surgery. Continue to monitor blood pressure, heart rate, and cardiopulmonary status. * Intracranial edema, status post surgery. Continue dexamethasone taper. * Infectious prophylaxis against herpes zoster. Discussed with Neurosurgery yesterday 11/02/2017. Valacyclovir was intended to be a total of a 7 day course. It was discontinued 11/02/2017. * Constipation. Initiated bowel regimen Diet. Regular PPx. SCDs Code. Full Dispo. Per hospital discharge information. She is to have a postoperative visit with neurosurgeon, Dr. Phillips, at [facility] in [place], [place], on November 15, and with application support technician, Dr. Marquis, at [facility] on November 30, 2017. Her primary care provider is Dr. Suki Arce. Follow up with weight calculator Dr. Matthews after discharge. Tentative discharge date set for 11/10/2017. Expect discharge home with family. Subjective: symptomatic palpitations during PT this AM, no BMs Objective: Vital Signs Temp Pulse Resp BP Pulse Ox 36.6 C 83 16 109/71 98 11/06/17 08:00 11/06/17 09:31 11/06/17 08:00 11/06/17 09:31 11/06/17 08:00 Laboratory Results 11/05/17 14:03 11/05/17 14:03 11/05/17 11/06/17 11/07/17 05:59 05:59 05:59 Intake Total 1176 390 120 Output Total 900 500 Balance 276 -110 120 - Physical Exam Constitutional: no apparent distress, appears nourished, not in pain, No uncomfortable Eyes: other (R lid palsy) Cardiovascular: regular rate and rhythym, no murmur, rub, or gallop, No edema Respiratory: no respiratory distress, no rales or rhonchi, clear to auscultation Gastrointestinal: normoactive bowel sounds, soft, non-tender abdomen, no palpable masses, No distension Neurologic: AAOx3, sensation intact bilaterally, facial droop (R side palsy) Psychiatric: interacting appropriately, not anxious, not encephalopathic, thought process linear ICD10 Worksheet Patient Problems: Problems Problem Status Onset Balance problem due to labyrinthine dysfunction of right ear Acute S/P craniotomy Acute
[2017-11-06] MEDS: SENNOSIDES/DOCUSATE SODIUM TAB PO SCH ×2 (14:47→20:40)
[2017-11-06] MEDS ORDERED: METOPROLOL TARTRATE 50 MG TAB PO SCH (21:00)
[2017-11-07] MEDS: METOPROLOL TARTRATE 50 MG TAB PO SCH ×2 (08:16→20:01)
[2017-11-07] MEDS: ASPIRIN EC 81 MG TAB PO SCH (08:16)
[2017-11-07] MEDS: SENNOSIDES/DOCUSATE SODIUM TAB PO SCH ×2 (08:17→20:01)
[2017-11-07] MEDS: POLYETHYLENE GLYCOL 3350 17 GM PKT PO SCH (08:17)
[2017-11-07] MEDS: BACITRACIN OPHTHALMIC OINTMENT RTEYE SCH ×2 (08:46→20:02)
[2017-11-07 09:21] LABS: PLATELET COUNT 256 10^3/uL (150-400)
--- NOTE | 2017-11-07 12:40 | HOSPPROG ---
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 - cont METAL SASH SETTER * NSVT. Acutely occurring on 11/05 PM w/ a rate approx 150 and duration approx 6 secs (on PPM interrogation strip), has a hx of this - currently on bblocker, and was NOT the cause of her tachycardia (likely sinus tach) on 11/06 and 11/07 w/ PT, which is likely 2/2 exertion and deconditioning, and does not require further bblocker uptitration - will review the interrogation rhythm w/ Cards today and see if further recs - recommend she f/u w/ Dr. Matthews after discharge, no med adjustments * Impaired closure of the right eye, status post implantation of gold weight. Continue bacitracin ophthalmic ointment as well as eye drops, and observe for any irritation. * Wound care. Discontinued sutures from post-auricular wound 11/02/2017. Healing well. No need for continued bacitracin. * History of mitral valve repair (no prosthesis) and pacemaker placement (for complete heart block). She has additional rate control with metoprolol (hx of ATach) which is to be continued. She shows no signs or symptoms of heart failure, though there was a troponin leak during her surgery. Continue to monitor blood pressure, heart rate, and cardiopulmonary status. * Intracranial edema, status post surgery. Continue dexamethasone taper. * Infectious prophylaxis against herpes zoster. Discussed with Neurosurgery yesterday 11/02/2017. Valacyclovir was intended to be a total of a 7 day course. It was discontinued 11/02/2017. * Constipation. Initiated bowel regimen, has had BMs Diet. Regular PPx. SCDs Code. Full Dispo. Per hospital discharge information. She is to have a postoperative visit with neurosurgeon, Dr. Phillips, at [facility] in [place], [place], on November 15, and with clinical biostatistician, Dr. Marquis, at [facility] on November 30, 2017. Her primary care provider is Dr. Suki Arce. Follow up with manager ui Dr. Matthews after discharge. Tentative discharge date set for 11/10/2017. Expect discharge home with family. Subjective: noted increase in HR to 104 on palpation today during PT, no chest symptoms, had BMs Objective: Vital Signs Temp Pulse Resp BP Pulse Ox 36.5 C 85 16 108/74 99 11/07/17 06:40 11/07/17 08:16 11/07/17 06:40 11/07/17 08:16 11/07/17 06:40 Laboratory Results 11/07/17 06:30 11/07/17 06:30 11/06/17 11/07/17 11/08/17 05:59 05:59 05:59 Intake Total 390 1074 268 Output Total 500 Balance -110 1074 268 - Physical Exam Constitutional: no apparent distress, appears nourished, not in pain, No uncomfortable Ears, Nose, Mouth, Throat: other (R eye lid lag) Cardiovascular: regular rate and rhythym, no murmur, rub, or gallop, No edema Respiratory: no respiratory distress, no rales or rhonchi, clear to auscultation Gastrointestinal: normoactive bowel sounds, soft, non-tender abdomen, no palpable masses, No distension Neurologic: AAOx3, sensation intact bilaterally, facial droop (R face palsy), No weakness Psychiatric: interacting appropriately, not anxious, not encephalopathic, thought process linear ICD10 Worksheet Patient Problems: Problems Problem Status Onset Balance problem due to labyrinthine dysfunction of right ear Acute S/P craniotomy Acute
[2017-11-07] MEDS: PETROLAT,WHT/MIN OIL/SOD CHL 3.5 GM OPHT.OINT RTEYE SCH (20:02)
[2017-11-08] MEDS: ASPIRIN EC 81 MG TAB PO SCH (08:27)
[2017-11-08] MEDS: POLYETHYLENE GLYCOL 3350 17 GM PKT PO SCH (08:27)
[2017-11-08] MEDS: METOPROLOL TARTRATE 50 MG TAB PO SCH ×2 (08:27→21:05)
[2017-11-08] MEDS: SENNOSIDES/DOCUSATE SODIUM TAB PO SCH ×2 (08:27→21:05)
[2017-11-08] MEDS: BACITRACIN OPHTHALMIC OINTMENT RTEYE SCH ×2 (09:14→21:06)
--- NOTE | 2017-11-08 13:24 | SOAPPROG ---
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 * Initial functional independence measure 87 on 11/01/2017, improved to 97 as of 11/08/2017. Independent in her room 8:00 a.m. To 10:00 p.m.. Has ambulated 120- 150 feet standby assist with a front wheeled walker. Occasionally needs contact guard assist for loss of balance to the right. Decreased proprioception on the right. Gait is more challenging outside. Has blackout taping of the right eye for ambulation and partial opaque taping otherwise. * Continue physical and occupational therapy to optimize mobility and activities of daily living and also to address diplopia, for a safe discharge home at the independent to modified independent level. 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 * Dysphagia 2 diet texture advanced to regular texture on 11/03/2017; continue with thin liquids per straw. She is unable to maintain labial seal sufficient to drink fluids other than with a straw. Pocketing on the right has resolved. * Continue speech and language pathology to optimize her swallowing. She reports the surgeon told her to expect 6 - 12 months for the nerve graft to mature and function to return to left CN7. * Hypoxia and tachycardia, resolved. * Slightly elevated D-dimer. CBC with mild leukocytosis, CTA chest w/out pulmonary embolus of other abnormality. Hypoxia with stair-climbing and tachycardia likely related to deconditioning. Weekend cross cover discussed with operations management trainee Dr. Matthews. Pacemaker shows intermittent episodes of SVT. Follow up with Cardiology after discharge. * Impaired closure of the right eye, status post implantation of gold weight. Continue bacitracin ophthalmic ointment as well as eye drops, and observe for any irritation. * Wound care. Discontinued sutures from post-auricular wound 11/02/2017. Healing well. No need for continued bacitracin. * History of mitral valve replacement and pacemaker placement. She has additional rate control with metoprolol which is to be continued. She shows no signs or symptoms of heart failure, though there was a troponin leak during her surgery. Continue to monitor blood pressure, heart rate, and cardiopulmonary status. * Intracranial edema, status post surgery. Continue dexamethasone taper. * Infectious prophylaxis against herpes zoster. Discussed with Neurosurgery yesterday 11/02/2017. Valacyclovir was intended to be a total of a 7 day course. It was discontinued yesterday, 11/02/2017. * DVT prophylaxis. She does not appear to be at markedly elevated risk, and though she requires assistance for balance, her mobility is good. She will have SCDs at night. She will not have pharmacologic anticoagulation. Continue aspirin, which presumably is also for risk for coronary artery. FOLLOWUP: Per hospital discharge information. She is to have a postoperative visit with neurosurgeon, Dr. Phillips, at [facility] in [place], [place], on November 15, and with tub mender, Dr. Marquis, at [facility] on November 30, 2017. Her primary care provider is Dr. Suki Arce. Follow up with operations management trainee Dr. Matthews after discharge. Attended staffing, 15 min. Discussed with case management, dietitian, nursing, PT, OT, [employer]. Plan for discharge 11/10/2017. Expect discharge home with family. 11/08/17 13:20 Subjective: No complaints. She feels she is getting around better. Looking for to going home in 2 more days. Objective: Vital Signs Temp Pulse Resp BP Pulse Ox 36.6 C 87 16 113/70 96 11/08/17 07:51 11/08/17 07:51 11/08/17 07:51 11/08/17 07:51 11/08/17 07:51 Laboratory Results 11/07/17 06:30 11/07/17 06:30 11/07/17 11/08/17 11/09/17 05:59 05:59 05:59 Intake Total 1074 624 813 Balance 1074 624 813 - Time Spent With Patient Time Spent With Patient: Greater than 35 min floor time today, including more than 50% of time in coordination of care during staffing meeting, and counseling patient. Physical Exam - Physical Exam General Appearance: WD/WN, alert, no apparent distress Respiratory: normal breath sounds, No crackles, No rhonchi, No wheezing Cardiac/Chest: regular rate, rhythm, No edema Skin: normal color, warm/dry Neuro/Psych: alert, normal mood/affect, oriented x 3, abnormal nurse plastics II-XII ( Right facial droop) ICD10 Worksheet Patient Problems: Problems Problem Status Onset Balance problem due to labyrinthine dysfunction of right ear Acute S/P craniotomy Acute - ICD10 Problem Qualifiers (1) 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
[2017-11-08] MEDS: PETROLAT,WHT/MIN OIL/SOD CHL 3.5 GM OPHT.OINT RTEYE SCH (21:04)
[2017-11-09] MEDS: MULTIVITAMINS 1 EACH TAB PO SCH (08:04)
[2017-11-09] MEDS: SENNOSIDES/DOCUSATE SODIUM TAB PO SCH ×2 (08:04→20:10)
[2017-11-09] MEDS: ASPIRIN EC 81 MG TAB PO SCH (08:04)
[2017-11-09] MEDS: METOPROLOL TARTRATE 50 MG TAB PO SCH ×2 (08:05→20:10)
[2017-11-09] MEDS: BACITRACIN OPHTHALMIC OINTMENT RTEYE SCH ×2 (08:50→20:11)
[2017-11-09] MEDS: POLYETHYLENE GLYCOL 3350 17 GM PKT PO SCH (09:01)
--- NOTE | 2017-11-09 15:17 | SOAPPROG ---
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 * Initial functional independence measure 87 on 11/01/2017, improved to 97 as of 11/08/2017. Independent in her room 8:00 a.m. To 10:00 p.m.. Has ambulated 120- 150 feet standby assist with a front wheeled walker. Occasionally needs contact guard assist for loss of balance to the right. Decreased proprioception on the right. Gait is more challenging outside. Has blackout taping of the right eye for ambulation and partial opaque taping otherwise. * Continue physical and occupational therapy to optimize mobility and activities of daily living and also to address diplopia, for a safe discharge home at the independent to modified independent level. 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 * Dysphagia 2 diet texture advanced to regular texture on 11/03/2017; continue with thin liquids per straw. She is unable to maintain labial seal sufficient to drink fluids other than with a straw. Pocketing on the right has resolved. * Continue speech and language pathology to optimize her swallowing. She reports the surgeon told her to expect 6 - 12 months for the nerve graft to mature and function to return to left CN7. * Hypoxia and tachycardia, resolved. * Slightly elevated D-dimer. CBC with mild leukocytosis, CTA chest w/out pulmonary embolus of other abnormality. Hypoxia with stair-climbing and tachycardia likely related to deconditioning. Weekend cross cover discussed with acid washer operator Dr. Matthews. Pacemaker shows intermittent episodes of SVT. Follow up with Cardiology after discharge. * Impaired closure of the right eye, status post implantation of gold weight. Continue bacitracin ophthalmic ointment as well as eye drops, and observe for any irritation. * Wound care. Discontinued sutures from post-auricular wound 11/02/2017. Healing well. No need for continued bacitracin. * History of mitral valve replacement and pacemaker placement. She has additional rate control with metoprolol which is to be continued. She shows no signs or symptoms of heart failure, though there was a troponin leak during her surgery. Continue to monitor blood pressure, heart rate, and cardiopulmonary status. * Intracranial edema, status post surgery. Completed dexamethasone taper. * Infectious prophylaxis against herpes zoster. Discussed with Neurosurgery yesterday 11/02/2017. Valacyclovir was intended to be a total of a 7 day course. It was discontinued 11/02/2017. * DVT prophylaxis. She does not appear to be at markedly elevated risk, and though she requires assistance for balance, her mobility is good. She will have SCDs at night. She will not have pharmacologic anticoagulation. Continue aspirin, which presumably is also for risk for coronary artery. FOLLOWUP: Per hospital discharge information. She is to have a postoperative visit with neurosurgeon, Dr. Phillips, at [facility] in [place], [place], on November 15, and with reject opener, Dr. Marquis, at [facility] on November 30, 2017. Her primary care provider is Dr. Suki Arce. Follow up with acid washer operator Dr. Matthews after discharge. Follow- up neuro-ophthalmology at [facility] after discharge. Plan for discharge 11/10/2017. Expect discharge home with family. 11/09/17 15:14 Subjective: No complaints. Doing well. Feels ready to go home tomorrow. Objective: Vital Signs Temp Pulse Resp BP Pulse Ox 36.4 C 75 18 100/69 92 11/09/17 08:00 11/09/17 08:05 11/09/17 08:00 11/09/17 08:05 11/09/17 08:00 Laboratory Results 11/07/17 06:30 11/07/17 06:30 11/08/17 11/09/17 11/10/17 05:59 05:59 05:59 Intake Total 624 1563 320 Output Total 200 Balance 624 1363 320 Physical Exam - Physical Exam General Appearance: WD/WN, alert, no apparent distress Respiratory: No respiratory distress, No accessory muscle use Skin: normal color, warm/dry Neuro/Psych: alert, normal mood/affect, oriented x 3, abnormal educational consultant II-XII ( Right facial droop), abnormal gait (Short steps, occasional minor LOB, with front wheeled walker, contact guard per Physical therapy.) ICD10 Worksheet Patient Problems: Problems Problem Status Onset Balance problem due to labyrinthine dysfunction of right ear Acute S/P craniotomy Acute - ICD10 Problem Qualifiers (1) 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
--- NOTE | 2017-11-09 15:53 | PDOREHIP ---
Admission [facility] - Admission - 3 Day Assessment Period Admission Date/Day 1: 10/28/17 Day 2: 10/29/17 Day 3: 10/30/17 Discharge [facility] - Discharge - 3 Day Assessment Period 2 Days Prior to Anticipated Discharge Date: 11/08/17 1 Day Prior to Anticipated Discharge Date: 11/09/17 Anticipated Discharge Date: 11/10/17 - Discharge Skin Conditions Unhealed Pressure Ulcer (1 or more/Stage 1 or >)-Discharge: 0. No
[2017-11-09] MEDS: PETROLAT,WHT/MIN OIL/SOD CHL 3.5 GM OPHT.OINT RTEYE SCH (20:13)
[2017-11-10] MEDS: BACITRACIN OPHTHALMIC OINTMENT RTEYE SCH (08:53)
[2017-11-10] MEDS: ASPIRIN EC 81 MG TAB PO SCH (08:53)
[2017-11-10] MEDS: POLYETHYLENE GLYCOL 3350 17 GM PKT PO SCH (08:53)
[2017-11-10] MEDS: SENNOSIDES/DOCUSATE SODIUM TAB PO SCH (08:53)
[2017-11-10] MEDS: METOPROLOL TARTRATE 50 MG TAB PO SCH (08:54)
[2017-11-10 09:01] VITALS: BP 100/57
--- NOTE | 2017-11-11 10:42 | GDS ---
[f rep st] DISCHARGE SUMMARY ADMITTING DIAGNOSES: Debility following labyrinthine approach resection of a right vestibular schwannoma with ataxia and balance abnormalities. DISCHARGE DIAGNOSES: Debility following labyrinthine approach resection of a right vestibular schwannoma with ataxia and balance abnormalities. CONSULTATIONS: None. PROCEDURES: She had a chest CT for tachycardia and hypoxia, which ruled out pulmonary embolus. COMPLICATIONS: None. HISTORY/HOSPITAL COURSE: This patient was admitted from the [facility] where she had surgery with neurosurgeon, Dr. Phillips on 10/22/2017. She had a right translabyrinthine craniotomy and resection of a large acoustic neuroma. She had transection of the right facial nerve, and there was a dissection done of the right greater auricular nerve for harvest and cable graft. Postsurgically, she had right-sided hearing loss, nausea and vertigo and right facial nerve paralysis. A gold weight was placed in her right eyelid to facilitate closing of the eye. Nausea and vomiting resolved, but she continued to have ataxia and balance impairment. She was otherwise medically stabilized and appropriate for inpatient rehabilitation. She had improvement during the course of her rehabilitation stay. Her initial functional independence measure was 87 on 11/01/2017, which is consistent with assisted living level of function. She required minimal assist for transfers using a front-wheeled walker. She ws able to ambulate 100 feet, contact guard assist to minimal assist. She required supervision for dressing and minimal assist for bathing. Her score improved to 97 as of 11/08/2017. She was made independent in her room 8:00 a.m. to 10:00 p.m. She had ambulated 120-150 feet with standby assist and a front-wheeled walker. She needed occasional contact guard assist for loss of balance to the right. She had decreased proprioception on the right. She had ongoing diplopia. She had blackout taping of the right eye with taping of clear glasses for ambulation, and she had partial opaque taping otherwise. Regarding the cranial nerve 7 injury with facial droop, she also had mild oral phase dysphagia, but she was advanced to a regular diet texture on 11/03/17. She was able to take thin liquids by straw because she was not able to maintain a labial seal on the right otherwise. She had an episode of hypoxia and tachycardia. There was an elevated D-dimer, and CBC showed mild elevated white count. She had a chest CT done to rule out a pulmonary embolus, and it was normal. It was concluded that the tachycardia likely had to do with deconditioning. She has a pacemaker, which was interrogated and showed intermittent episodes of SVT. Other labs and studies during her stay: On 11/07/2017, on CBC, leukocytosis had resolved with a white count of 8.2. On 11/05/2017, white count was elevated at 11.32. She did not have anemia, and CBC was otherwise within normal limits. Coagulation studies on 11/05/2017 showed an elevated D-dimer at 0.86, with the upper limit of normal being 0.5. Serum chemistry on 11/07/2017 showed normal renal function, electrolytes and liver function. On 11/05/2017, she had a minimally elevated BNP at 208, which likely ruled out heart failure. CONDITION ON DISCHARGE: Good. ACTIVITY: Ad jarred, but she may benefit from supervision or contact guard assist with ambulation, especially outside. DIET: Regular. FOLLOWUP: She has followup with neurosurgeon, Dr. Jt Phillips at the [facility] on 11/15/2017, at 11:30 a.m. She has followup with ENT, Dr. Boy Marquis, on 11/30/2017 at 11:40 a.m. She has followup with primary care physician, Dr. Suki Arce, on 11/16/2017 at 1:45 p.m. She has followup with sql programmer analyst, Dr. Yanelis Matthews, on 11/17/2017 at 11 a.m., and she will follow up with Neuro-Ophthalmology at the [facility] regarding her diplopia. DISCHARGE MEDICATIONS: 1. Aspirin 81 mg p.o. daily. 2. Multivitamin 1 p.o. daily. 3. Artificial Tears p.r.n. 4. Bacitracin ophthalmic ointment b.i.d. 5. Docusate 100 mg p.o. b.i.d. 6. Metoprolol 50 mg p.o. b.i.d. 7. Polyethylene glycol daily p.r.n. 8. Senna/docusate 1 p.o. b.i.d. p.r.n. Issues to be addressed at followup: 1. Functional status. Continue home health, occupational therapy, physical therapy, and speech and language pathology. She can follow up with her primary care physician regarding her progress. 2. Follow up on surgeries. The sutures in her right eyelid are dissolvable. She will follow up with Drs. Phillips and Benitez as planned. 3. Episodes of tachycardia with history of mitral valve replacement and pacemaker placement. She will follow up with sql programmer analyst, Dr. Matthews. 4. Diplopia. She will have follow up with Neuro-Ophthalmology. She can continue occlusive and partially opaque taping of the right eye as needed. Copy requested to: Dr. Boy Marquis [facility] Dr. Jt Erazo [facility] /[id number]/[id number]
== END 2017-11-10 16:30 | disposition home or self-care (01) | DRG 949 ==
LOC: BREH 15:26
PROVIDERS: ADMIT Internal Medicine Hospice and Palliative Medicine; ATTEND Internal Medicine Hospice and Palliative Medicine
PROC: F08Z4ZZ Home Management Treatment (ICD-10-PCS; principal; 2017-10-28)
PROC: F0636ZZ Communicative/Cognitive Integration Skills Treatment of Neurological System - Whole Body (ICD-10-PCS; principal; 2017-10-28)
PROC: F07M3ZZ Motor Function Treatment of Musculoskeletal System - Whole Body (ICD-10-PCS; principal; 2017-10-28)
PROC: F08Z7ZZ Vocational Activities and Functional Community or Work Reintegration Skills Treatment (ICD-10-PCS; principal; 2017-10-28)
DX: Z48.811 Encounter for surgical aftercare following surgery on the nervous system (principal); Z86.011 Personal history of benign neoplasm of the brain; I47.2 Ventricular tachycardia; R29.810 Facial weakness; R13.11 Dysphagia, oral phase; S04.51 Injury of facial nerve, right side; R26.0 Ataxic gait; R26.81 Unsteadiness on feet; R09.02 Hypoxemia; Z95.4 Presence of other heart-valve replacement; Z95.0 Presence of cardiac pacemaker; K59.00 Constipation, unspecified; Z23 Encounter for immunization
CPT/HCPCS: 92507-GN; 92508-GN; 92522-GN; 92526-GN; 92610-GN; 97110-GO; 97110-GP; 97112-GO; 97112-GP; 97116-GP; 97162-GP; 97166-GO; 97530-GO; 97530-GP; 97535-GO; G0009; G0515-GO; Q9967